=== PATIENT | female | born 1930 | race Two or more races ===

== ENCOUNTER → 2018-02-03 | Outpatient (CLI) | payer OTHER ==
[~2018-02-03] MED LIST: ALLEGRA30 MG; ASPIR 8181 MG; BENADRYL25 MG PO; CARAFATE; CHILDREN'S ALLE30 M1; COZAAR25 MG; LEVAQUIN500 MG PO; LIPITOR20 MG; NEXIUM; PLAVIX75 MG; SINGULAIR 10MG10 MG; SINGULAIR4 MG; SPIRIVA RESPIMAT4 G1; SYMBICORT 16010.2 GM
== END | disposition home or self-care (01) ==
LOC: RAD 10:50
DX: J44.1 Chronic obstructive pulmonary disease with (acute) exacerbation (principal)

== ENCOUNTER 2018-03-14 09:28 | Outpatient (CLI) | payer OTHER | END 2018-03-14 09:31 | disposition home or self-care (01) | LOC: RX STUDY 09:28 | DX: R10.13 Epigastric pain (principal); K30 Functional dyspepsia ==

== ENCOUNTER 2018-07-01 11:24 | Outpatient (CLI) | payer OTHER | END 2018-07-01 11:31 | disposition home or self-care (01) | LOC: RAD 11:24 | DX: M79.672 Pain in left foot (principal) ==

== ENCOUNTER 2018-07-15 11:19 | Emergency (ER) | payer OTHER ==
[~2018-07-15] VITALS: Ht 165.1 cm; Wt 67.1 kg
[2018-07-15] MEDS ORDERED: SYNTHROID50 MCG (11:44)
== END 2018-07-15 16:22 | disposition home or self-care (01) ==
LOC: ER 11:19
DX: R60.0 Localized edema (principal); I87.2 Venous insufficiency (chronic) (peripheral)

== ENCOUNTER 2018-08-28 10:02 | Emergency (ER) | payer OTHER ==
[~2018-08-28] VITALS: Ht 165.1 cm; Wt 67.1 kg
[~2018-08-28 10:02] MED LIST changes: +SYNTHROID50 MCG
[2018-08-28] MEDS ORDERED: LANSOPRAZOLE30 MG PO (10:22)
[2018-08-28] MEDS ORDERED: BENTYL10 MG/1 ML IM (10:23)
== END 2018-08-28 15:39 | disposition home or self-care (01) ==
LOC: ER 10:02
DX: K52.9 Noninfective gastroenteritis and colitis, unspecified (principal)

== ENCOUNTER 2018-09-10 07:43 | Outpatient (CLI) | payer OTHER ==
[~2018-09-10 07:43] MED LIST changes: +BENTYL10 MG/1 ML IM; +LANSOPRAZOLE30 MG PO
== END 2018-09-10 07:49 | disposition home or self-care (01) ==
LOC: SONOGRAMA 07:43 → RX STUDY 08:15
DX: R10.13 Epigastric pain (principal)

== ENCOUNTER 2018-09-10 08:06 | Outpatient (CLI) | payer OTHER | END 2018-09-10 08:10 | disposition home or self-care (01) | LOC: LAB 08:06 | DX: R10.13 Epigastric pain (principal) ==

== ENCOUNTER 2018-10-22 07:40 | Outpatient (CLI) | payer OTHER | END 2018-10-22 11:02 | disposition home or self-care (01) | LOC: TOM 07:40 | DX: R10.13 Epigastric pain (principal) ==

== ENCOUNTER 2019-01-21 13:28 | Emergency (ER) | payer OTHER ==
[~2019-01-21] VITALS: Ht 165.1 cm; Wt 65.8 kg
[2019-01-21] MEDS ORDERED: ERTAPENEM1 GM (13:36)
== END 2019-01-21 21:26 | disposition home or self-care (01) ==
LOC: ER 13:28
DX: J45.998 Other asthma (principal); J11.1 Influenza due to unidentified influenza virus with other respiratory manifestations

== ENCOUNTER 2019-03-20 09:47 | Outpatient (CLI) | payer OTHER ==
[~2019-03-20 09:47] MED LIST changes: +ERTAPENEM1 GM
== END 2019-03-20 10:10 | disposition home or self-care (01) ==
LOC: RAD 09:47
DX: M25.552 Pain in left hip (principal)

== ENCOUNTER 2019-08-15 10:11 | Emergency (ER) | payer OTHER ==
[~2019-08-15] VITALS: Ht 154.9 cm; Wt 56.7 kg
== END 2019-08-15 15:41 | disposition home or self-care (01) ==
LOC: ER 10:11
DX: M76.892 Other specified enthesopathies of left lower limb, excluding foot (principal); Z96.642 Presence of left artificial hip joint